=== PATIENT | male | born 1935 | race Caucasian/White ===

== ENCOUNTER → 2016-10-31 | Outpatient (CLI) | payer MEDICARE, BC ==
[~2016-10-31] MED LIST: AMARYL4 MG PO; ASPIRIN EC325 MG PO; COLACE100 MG PO; CORDARONE,PACE200 MG PO; CPAP INH; EFFEXOR XR75 MG PO; FLEXERIL10 MG PO; FLOMAX0.4 MG PO; GLUCOPHAGE500 MG PO; INVOKANA300 MG PO; LEVOTHROID (S150 MCG PO; NORVASC2.5 MG PO; OXYCODONE HCL5 MG PO; PROTONIX40 MG PO; TOPROL XL25 MG PO; TYLENOL325 MG PO; ULTRAM50 MG PO; ZOCOR40 MG PO
== END | disposition disaster alternative care site (69) ==
LOC: GRAD 08:28
DX: M54.9 Dorsalgia, unspecified (principal); M48.06 Spinal stenosis, lumbar region; M47.896 Other spondylosis, lumbar region; R20.0 Anesthesia of skin; R20.2 Paresthesia of skin; Z98.890 Other specified postprocedural states

== ENCOUNTER → 2016-12-02 | Outpatient (CLI) | payer MEDICARE, BC ==
--- NOTE | ~2016-12-02 | ENPV ---
Vascular Lower Arterial Plethysmography Procedure Demographics Patient Name AGUSTIN OSORIO Date of Study 12/02/2016 Patient Number [id number] Gender Male Date of 1935 Age 81 Visit Number [id number] Height Accession Number [id number] Weight Room Number BSA BMI Referring Chris Peter MD Interpreting Ld Smiley MD Physician Kenny Steve MD Physician Physician Ordering Physician Kenny Steve MD Party Plan Demonstrator Control Panel Operator Jose Enrique Trujillo, [facility] Conclusions Summary Bilateral ankle/brachial indices are abnormal and >1.4 suggestive of calcific non-compressible vessels. Bilateral complete segmental pressures may not be accurate secondary to non-compressible ankle/brachial indices. Bilateral Doppler waveforms are within normal limits of triphasic and biphasic. Right toe/brachial index is 1.10 and within normal limits. Left toe/brachial index is 1.22 and within normal limits. Procedure Type of Study: Extremities Arteries:Lower Arterial Plethysmography, Segmental Pressure, Complete. Indications for Study:Claudication. Additional Indications:pain in bilateral lower extremities Appropriate Use Criteria:7 Allergies - No known allergies. Patient Status:Routine. Study Location:[facility]. Technical Quality:Adequate visualization. Velocities are measured in cm/s ; Diameters are measured in cm Pressures + ++--------+-----+----+--------+-----+ ! !!Right ! !Left! ! ! + ++--------+-----+----+--------+-----+ !Location !!Pressure!Ratio! !Pressure!Ratio! + ++--------+-----+----+--------+-----+ !Upper Thigh !!205 !1.95 ! !192 !1.83 ! + ++--------+-----+----+--------+-----+ !Lower Thigh !!173 !1.65 ! !193 !1.84 ! + ++--------+-----+----+--------+-----+ !Ankle !!230 !2.19 ! !185 !1.76 ! + ++--------+-----+----+--------+-----+ !Ankle PT !!180 !1.71 ! !166 !1.58 ! + ++--------+-----+----+--------+-----+ !DP !!124 !1.18 ! !161 !1.53 ! + ++--------+-----+----+--------+-----+ !Great Toe !!116 !1.1 ! !128 !1.22 ! + ++--------+-----+----+--------+-----+ - Brachial Pressure:Right: 105.Left:105. - NIECY:Right: 1.71.Left: 1.58. Plethysmographic Digit Evaluation +---------++--------+-----+ ++--------+-----+ + ! !!Right ! !Left !! ! ! ! +---------++--------+-----+ ++--------+-----+ + !Location !!Pressure!Ratio!PPG Wave Form !!Pressure!Ratio!PPG Wave Form ! +---------++--------+-----+ ++--------+-----+ + !Great Toe!!116 !1.1 ! !!128 !1.22 ! ! +---------++--------+-----+ ++--------+-----+ + Signature dtt: RASTA BLEDSOE dtd: 12/02/16 1251 Physician Self Edit
== END | disposition disaster alternative care site (69) ==
LOC: GCAR 12:35
DX: M79.606 Pain in leg, unspecified (principal)

== ENCOUNTER 2017-01-22 11:00 | Inpatient (IN) | payer MEDICARE, BC ==
[~2017-01-22] VITALS: Ht 180.3 cm; Wt 107.2 kg
--- NOTE | ~2017-01-22 | OR ---
[facility]GE[facility] 81 Y [address] ROOM: [place] [address] LOCATION: [facility] ADMIT DATE: 01/29/2017 OR/Procedure Report DISCHARGE DATE: FAMILY PHYSICIAN: Rome Perez MD ATTENDING PHYSICIAN: PRISCA MARCIAL SURGEON: Prisca Marcial MD SENIOR DATA ARCHITECT: DATE OF PROCEDURE: 01/29/2017 ANESTHESIOLOGIST: Tyrone Rico M.D. ANESTHESIA: General. COMPLICATIONS: None. ESTIMATED BLOOD LOSS: 400 mL. PREOPERATIVE DIAGNOSES: 1. History of L3-L5 posterolateral instrumented fusion. 2. 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 3. L1-L2 severe spinal stenosis with neurogenic claudication. 4. L2-L3 severe spinal stenosis with neurogenic claudication. 5. L1-L2, L2-L3, L3-L4, L4-L5, and L5-S1 severe facet arthropathy with mechanical back pain. 6. History of L3-L5 decompressive laminectomy. POSTOPERATIVE DIAGNOSES: 1. History of L3-L5 posterolateral instrumented fusion. 2. 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 3. L1-L2 severe spinal stenosis with neurogenic claudication. 4. L2-L3 severe spinal stenosis with neurogenic claudication. 5. L1-L2, L2-L3, L3-L4, L4-L5, and L5-S1 severe facet arthropathy with mechanical back pain. 6. History of L3-L5 decompressive laminectomy. PROCEDURES: 1. Exploration of L3-L5 posterior instrumented fusion for loose hardware and pseudoarthrosis. 2. Removal of L3-L5 pedicle screws, rods, and cross connector for loose hardware, pseduoarthrosis, and mechanical low back pain. 3. L1-L2 decompressive laminectomy, partial bilateral inferior facetectomy and decompression of the neural elements for spinal stenosis. 4. L2-L3 decompressive laminectomy, partial bilateral inferior facetectomy and decompression of the neural elements for spinal stenosis. 5. L1-L2, L2-L3, L3-L4, L4-L5, and L5-S1 posterolateral noninstrumented PATIENT'S [facility]: [facility] AGE: 81 Y [address] ROOM: [place] [address] LOCATION: [facility] ADMIT DATE: 01/29/2017 OR/Procedure Report DISCHARGE DATE: FAMILY PHYSICIAN: Rome Perez MD ATTENDING PHYSICIAN: PRISCA MARCIAL. 6. Insertion of mixture of allograft, autograft, and DBM bone posterolaterally from L1-S1 for posterolateral arthrodesis. 7. Decortication of the L1-L2, L2-L3, L3-L4, L4-L5, and L5-S1 facet joints for posterolateral arthrodesis. CLINICAL HISTORY: The patient is an 81-year-old male patient who was diagnosed clinically and on imaging to have the above-mentioned diagnoses. The patient was symptomatic with severe low back pain and severe neurogenic claudication symptoms. I recommended the above mentioned surgery to the patient to try to relieve his symptoms and improve his daily activities and functioning. The patient was interested in proceeding, so he was brought in for the operation. DESCRIPTION OF PROCEDURE: The patient was seen in the preoperative care unit and the correct side was marked. Then, he was transferred to the main operating theater, was given general anesthetic, and underwent endotracheal intubation without complications. Preoperative antibiotics were given. Ac catheter, calf compressors, and an arterial line were used throughout the procedure. The patient was carefully turned to prone position on a gel padded Chuck table and all his joints and bony prominences were securely padded. The lumbar region was exposed. The previous midline lumbar scar was exposed as well. The surgical site was prepped and draped as per usual. The proposed skin incision was infiltrated with 0.25% Marcaine with epinephrine. Skin was sharply opened down to the subcutaneous tissue. Then, using a monopolar cautery, I dissected through the lumbar fascia and through the scar from the previous tissue. I managed to expose the spinous processes of L1 and L2 as well as the spinous process of S1. I also managed to expose the L1-L2 laminae as well as L1-L2 and L2-L3 facet joints. Then, I dissected through the scar tissue, which was substantially difficult. I managed to expose the posterior instrumentation from L3-L5 as well as the cross connector. There was significant bony growth around the hardware and that was exposed. I was happy with the exposure. I started by formally exposing the L3-L5 instrumentation. The bony overgrowth around the hardware was removed using an osteotome, Leksell, and high-speed Midas Jaguar drill. Then, I started by removing the screw caps and I did that without any complications. Then, I removed the cross sandrine connector without any complications. Rods were removed. Then, the L3 and L4 screws were removed. As expected, based on the previous preoperative imaging, the L5 pedicle screws were loose bilaterally and those were removed without any complications. Then, I proceeded to perform the laminectomy at L1-L2 and L2-L3 levels. Using PATIENT'S NAME: AGUSTIN OSORIO [facility] AGE: 81 Y [address] ROOM: [id number] [place], [place] [address] LOCATION: [facility] ADMIT DATE: 01/29/2017 OR/Procedure Report DISCHARGE DATE: FAMILY PHYSICIAN: Rome Perez MD ATTENDING PHYSICIAN: PRISCA MARCIAL, the spinous processes of L1 and L2 were removed. Then, using a high- speed Midas Jaguar drill, the L1 and L2 laminae were thinned down to the ligamentum flavum. The bone was hyperostatic and the ligamentum flavum was calcified. Then, I finished the laminectomy and the partial inferior facetectomy at L1-L2 and L2-L3 levels using Kerrison rongeur without any complications. The thecal sac was then decompressed by removing the ligamentum flavum at L1-L2. Again, there were adhesions between the ligamentum flavum and the dura given the calcification of the ligamentum flavum. I had no complications. Thecal sac was decompressed at L1-L2. Then, I continued the decompressive laminectomy at L2-L3. As expected, there was severe stenosis at that level. There was also severe adhesions and scarring between the ligamentum flavum and the dura. Using blunt and sharp dissection, I managed to dissect the scar tissue and removed the ligamentum flavum to achieve complete decompression of the thecal sac. I was satisfied with the decompression. That part of the operation was extremely difficult given the calcification of the ligamentum flavum as well as the scar tissue between the dura and the ligamentum flavum. We had no complications during that. I was satisfied with that. Then, I proceeded to irrigate the wound. The wound was copiously irrigated with bacitracin-containing irrigation. Then, I proceeded to decorticate the facet joints at L1-L2, L2-L3, L3-L4, L4-L5, and L5-S1 levels. I did that using Leksell rongeur and high-speed Midas Jaguar drill to achieve posterolateral arthrodesis. Then, the dura was covered with Gelfoam. Then, a mixture of autograft, allograft, and DBM bone was placed posterolaterally from L1-S1 for posterolateral arthrodesis. Then, I proceeded to closure. Two 1/ Hemovac drains were inserted, tunneled, and secured to the skin with 3-0 Prolene. Then, the wound was closed in layers with #1 Vicryl to the paraspinal muscles, #1 Vicryl to the fascia, 2-0 Vicryl to the subcutaneous tissue, and leola for the skin. Sterile dressing was applied. At the end of the operation, the instrument and sponge counts were correct. The patient tolerated the operation without any complications. This operation was substantially difficult given the significant scarring from the previous surgery, significant bony overgrowth around the hardware, and severe scarring and adhesions at L1-L2 and L2-L3 levels. This operation required more time and caution to perform in order to avoid intraoperative morbidity. PRISCA MARCIAL MD PATIENT'S NAME: AGUSTIN OSORIO [facility] AGE: 81 Y [address] ROOM: [place] [address] LOCATION: [facility] ADMIT DATE: 01/29/2017 OR/Procedure Report DISCHARGE DATE: FAMILY PHYSICIAN: Rome Perez MD ATTENDING PHYSICIAN: PRISCA MARCIAL AB/modl /[id number] CC: MD Power Benitez MD d: 01/29/17 2352 t: 01/31/17 1132, OPERATIVE SUMMARY
--- NOTE | ~2017-01-22 | DS ---
PATIENT'S NAME: AGUSTIN OSORIO [facility] AGE: 81 Y [address] ROOM: [address] [place], [place] [address] LOCATION: [facility] ADMIT DATE: 01/29/2017 Discharge Summary DISCHARGE DATE: 02/03/2017 FAMILY PHYSICIAN: Rome Perez MD ATTENDING PHYSICIAN: Prisca Marcial ADMISSION MAIN DIAGNOSES: 1. L1-L2, L2-L3 spinal stenoses with neurogenic claudication. 2. History of L3-L5 posterior instrumented fusion, hardware failure and pseudoarthrosis, back pain. 3. L1-S1 bilateral facet arthropathy with mechanical low back pain. DISCHARGE DIAGNOSES: 1. L1-L2, L2-L3 spinal stenoses with neurogenic claudication. 2. History of L3-L5 posterior instrumented fusion, hardware failure and pseudoarthrosis, back pain. 3. L1-S1 bilateral facet arthropathy with mechanical low back pain. PROCEDURES DURING ADMISSION: 1. L1-L2, L2-L3 decompressive laminectomy for spinal stenosis. 2. Exposure and removal of loose L3-L5 posterior instrumentation. 3. L1-S1 posterolateral non-instrumented fusion. SURGICAL COMPLICATIONS DURING ADMISSION: None. DISCHARGE INSTRUCTIONS AND FOLLOWUP APPOINTMENTS: 1. Myself on February 10, 2017, for staple removal. 2. Corset brace when mobilizing. 3. Call my office for any concerns regarding the wound healing or for any new neurologic symptoms. 4. No heavy lifting (no more than 20 pounds), no back twisting, no forward bending. 5. Keep the dressing on and dry until February 08, then take off and keep the wound open to air. 6. Contact Dr. Cox's office for any issues regard to heart rhythm/ shortness of breath. MEDICATIONS ON DISCHARGE: 1. Amiodarone 200 mg p.o. once daily. 2. Resume all pre-admission medications. 3. Aspirin 325 mg p.o. once daily (start on February 05, 2017). 4. Flexeril 10 mg p.o. every 8 hours p.r.n. 5. Tramadol 50 to 100 mg p.o. every 6 hours p.r.n. HOSPITAL COURSE: The patient is an 81-year-old male patient, who was diagnosed clinically and on imaging to have the above-mentioned diagnoses. PATIENT'S NAME: AGUSTIN OSORIO [facility] AGE: 81 Y [address] ROOM: [id number] [place], [place] [address] LOCATION: [facility] ADMIT DATE: 01/29/2017 Discharge Summary DISCHARGE DATE: 02/03/2017 FAMILY PHYSICIAN: Rome Perez MD ATTENDING PHYSICIAN: Prisca Marcial Conservative treatment failed and the patient was fairly symptomatic. The patient was brought in electively for the above-mentioned surgery. He underwent an unremarkable operation. Postoperatively, the patient did very well from the surgical perspective. All his preoperative severe mechanical low back pain and neurogenic claudication symptoms have completely resolved. He mobilized very well with physiotherapy and occupational therapy. On postoperative day #1, the patient was noticed to have increasing respiratory rate, shortness of breath, and his EKG showed evidence of tachycardia. EKG confirmed ventricular tachycardia. The patient was transferred to the progressive care unit, and he was urgently seen by Cardiology. He was started on amiodarone, which fairly controlled heart rate, and the patient converted to sinus rhythm. The patient continued to have shortness of breath. His chest x-ray showed evidence of pulmonary edema. The patient was given Lasix and had a good diuresis. The patient was continued on amiodarone, and he continued to be seen by hospitalist and Cardiology. His followup chest x-ray showed gradual improvement of pulmonary edema. Eventually, the patient was off the oxygen. He stabilized from the respiratory status. From the spine perspective, the patient remained stable throughout the admission. His incision was healing very well and there was no evidence of infection or dehiscence. All his preoperative symptoms completely resolved after the surgery. He also had a postoperative lumbar spine x-ray and that showed no change in the lumbar spine alignment. On the day of discharge, the patient was examined. He remained stable from the cardiovascular and respiratory perspective. He had no new motor deficits on his lower extremities. He was mobilizing with minimal surgical pain with PT and OT. His wound was examined and it was healing very well. I reviewed the discharge instructions with the patient. The patient was also seen by Cardiology and he was cleared for discharge. Given that, the patient will be sent home today. AHMAD MD IZABELLA MARCIAL/modl /[id number] CC: MD Rome Desai MD d: 02/05/17 0746 t: 02/05/17 1423, DISCHARGE SUMMARY
--- NOTE | ~2017-01-22 | OR ---
[facility] 81 Y [address] ROOM: [place] [address] LOCATION: [facility] ADMIT DATE: 01/29/2017 OR/Procedure Report DISCHARGE DATE: FAMILY PHYSICIAN: Rome Perez MD ATTENDING PHYSICIAN: SUNI BELL SURGEON: Tyrone Rico MD DATA WAREHOUSE SPECIALIST: None. DATE OF PROCEDURE: 01/29/2017 PROCEDURE PERFORMED: Right radial 20-gauge arterial line placement. INDICATIONS FOR PROCEDURE: Need for perioperative edsb-ln-dxup blood pressure monitoring. PREOPERATIVE DIAGNOSES: 1. Lumbar stenosis with unstable lumbar hardware. 2. Moderate aortic stenosis status post transcatheter aortic-valve replacement. 3. Ischemic cardiomyopathy status post coronary artery bypass grafting. 4. History of atrial fibrillation. 5. Hypertension. 6. Hyperlipidemia. 7. Obstructive sleep apnea, on CPAP therapy. 8. Obesity. 9. Diabetes mellitus, type 2. POSTOPERATIVE DIAGNOSES: 1. Lumbar stenosis with unstable lumbar hardware. 2. Moderate aortic stenosis status post transcatheter aortic-valve replacement. 3. Ischemic cardiomyopathy status post coronary artery bypass grafting. 4. History of atrial fibrillation. 5. Hypertension. 6. Hyperlipidemia. 7. Obstructive sleep apnea, on CPAP therapy. 8. Obesity. 9. Diabetes mellitus, type 2. COMPLICATIONS: None noted. ESTIMATED BLOOD LOSS: Minimal. CONSENT: Informed consent was obtained preoperatively including discussion of risks, benefits, and alternatives. Mr. Riddle stated his understanding of the above procedures, risks, benefits, and alternatives and agreed for me to PAT[facility] AGE: 81 Y [address] ROOM: [place] [address] LOCATION: [facility] ADMIT DATE: 01/29/2017 OR/Procedure Report DISCHARGE DATE: FAMILY PHYSICIAN: Rome Perez MD ATTENDING PHYSICIAN: SUNI BELL proceed. DESCRIPTION OF PROCEDURE: After induction of anesthesia, the patient in prone position. Right wrist was supinated. Sterile prep with ChloraPrep x2. Utilizing sterile technique, a 20-gauge Arrow catheter was cannulated under direct ultrasound guidance. Pulsatile blood flow. Over a wire 20-gauge Arrow catheter was inserted without difficulty. Wire and needle were removed intact. Catheter was de-aired and flushed with saline solution. Sterile occlusive Tegaderm dressing was applied. Good correlation of non-invasive blood pressure monitoring. The patient tolerated the procedure well. MD TIERNEY BORDEN/blancal /[id number] d: 01/29/174 t: 01/30/17 1550, OPERATIVE SUMMARY
[~2017-01-22 11:00] MED LIST changes: -COLACE100 MG PO; -CORDARONE,PACE200 MG PO; -EFFEXOR XR75 MG PO; -FLEXERIL10 MG PO; -FLOMAX0.4 MG PO; -OXYCODONE HCL5 MG PO; -PROTONIX40 MG PO; -TYLENOL325 MG PO; -ULTRAM50 MG PO
[2017-01-22] MEDS ORDERED: EFFEXOR XR75 MG PO (15:42)
[2017-01-22] MEDS ORDERED: FLOMAX0.4 MG PO (15:42)
[2017-01-22] MEDS ORDERED: PROTONIX40 MG PO (15:43)
[2017-01-30 05:58] LABS: HEMATOCRIT 34.7 % (33.0-50.0); HEMOGLOBIN 11.5 g/dL (11.0-16.0); MCH 32.3 pg (27.0-34.0); MCHC 33.1 gm/dL (32.0-36.5); MCV 97.5 fl (83.0-98.0); MPV 9.6 fl (9.4-12.4); RBC 3.56 M/uL (3.50-5.50); RDW-CV 14.2 % (11.9-14.6); WBC 10.9 K/uL (4.0-11.0)
[2017-01-30 06:15] LABS: ANION GAP 11.4 (10.0-19.0); CALCIUM 7.5 mg/dL (8.5-10.5); POTASSIUM 4.4 mMol/L (3.7-5.1)
[2017-01-31 05:20] LABS: ANION GAP 10.9 (10.0-19.0); POTASSIUM 3.9 mMol/L (3.7-5.1)
[2017-01-31 11:14] LABS: TOTAL PROTEIN 6.8 g/dL (6.0-8.4)
[2017-02-01 10:29] LABS: ALBUMIN 2.8 gm/dL (3.5-5.0); ANION GAP 10.6 (10.0-19.0); MAGNESIUM 2.2 mg/dL (1.8-2.6); POTASSIUM 3.6 mMol/L (3.7-5.1)
[2017-02-01 10:34] LABS: PHOSPHORUS 1.3 mg/dL (2.5-4.9)
[2017-02-01 12:04] LABS: BASOPHIL % 0.3 %; EOSINOPHIL # 0.1 K/uL (0.0-0.5); EOSINOPHIL % 0.6 %; HEMATOCRIT 34.3 % (33.0-50.0); HEMOGLOBIN 11.8 g/dL (11.0-16.0); IMMATURE GRANULOCYTE % 0.4 %; LYMPHOCYTE # 1.3 K/uL (0.8-4.0); MCHC 34.4 gm/dL (32.0-36.5); MCV 95.8 fl (83.0-98.0); MONOCYTE # 0.8 K/uL (0.0-1.0); MONOCYTE % 7.3 %; MPV 9.6 fl (9.4-12.4); NEUTROPHIL # (ANC) 8.6 K/uL (1.4-9.0); NEUTROPHIL % 79.4 %; NRBC % 0 /100WBC (0-0.00); PLATELET COUNT 171 K/uL (150-450); RBC 3.58 M/uL (3.50-5.50); RDW-CV 13.8 % (11.9-14.6); WBC 10.8 K/uL (4.0-11.0)
[2017-02-02 06:49] LABS: ALBUMIN 2.6 gm/dL (3.5-5.0); ANION GAP 11.5 (10.0-19.0); CALCIUM 8.2 mg/dL (8.5-10.5); MAGNESIUM 2.2 mg/dL (1.8-2.6); POTASSIUM 3.5 mMol/L (3.7-5.1)
[2017-02-02 06:54] LABS: PHOSPHORUS 1.8 mg/dL (2.5-4.9)
[2017-02-03 06:29] LABS: ALBUMIN 2.6 gm/dL (3.5-5.0); ANION GAP 10.9 (10.0-19.0); CALCIUM 8.1 mg/dL (8.5-10.5); MAGNESIUM 2.3 mg/dL (1.8-2.6); PHOSPHORUS 2.2 mg/dL (2.5-4.9); POTASSIUM 3.9 mMol/L (3.7-5.1)
[2017-02-03] MEDS ORDERED: TYLENOL325 MG PO (12:33)
[2017-02-03] MEDS ORDERED: CORDARONE,PACE200 MG PO (12:35)
[2017-02-03] MEDS ORDERED: COLACE100 MG PO (12:36)
[2017-02-03] MEDS ORDERED: FLEXERIL10 MG PO (12:37)
[2017-02-03] MEDS ORDERED: ULTRAM50 MG PO (12:39)
[2017-02-03] MEDS ORDERED: OXYCODONE HCL5 MG PO (12:40)
== END 2017-02-03 13:10 | disposition disaster alternative care site (69) | DRG 459 ==
LOC: G3N 01-29 05:52 → GPCU 01-30 17:16 → G3N 01-30 17:16 → GPCU 01-30 20:05
PROVIDERS: Internal Medicine; Internal Medicine Interventional Cardiology; ADMIT Neurological Surgery
PROC: 00NY0ZZ Release Lumbar Spinal Cord, Open Approach (ICD-10-PCS; principal; 2017-01-29)
PROC: 0SP00AZ Removal of Interbody Fusion Device from Lumbar Vertebral Joint, Open Approach (ICD-10-PCS; principal; 2017-01-29)
PROC: 0SG30K1 Fusion of Lumbosacral Joint with Nonautologous Tissue Substitute, Posterior Approach, Posterior Column, Open Approach (ICD-10-PCS; principal; 2017-01-29)
PROC: 03HY32Z Insertion of Monitoring Device into Upper Artery, Percutaneous Approach (ICD-10-PCS; principal; 2017-01-29)
PROC: 0SG10K1 Fusion of 2 or more Lumbar Vertebral Joints with Nonautologous Tissue Substitute, Posterior Approach, Posterior Column, Open Approach (ICD-10-PCS; principal; 2017-01-29)
DX: M48.06 Spinal stenosis, lumbar region (principal); J96.01 Acute respiratory failure with hypoxia; S32.009K Unspecified fracture of unspecified lumbar vertebra, subsequent encounter for fracture with nonunion; T84.216A Breakdown (mechanical) of internal fixation device of vertebrae, initial encounter; E03.9 Hypothyroidism, unspecified; E11.9 Type 2 diabetes mellitus without complications; E78.5 Hyperlipidemia, unspecified; G47.33 Obstructive sleep apnea (adult) (pediatric); I25.10 Atherosclerotic heart disease of native coronary artery without angina pectoris; I35.0 Nonrheumatic aortic (valve) stenosis; Z95.2 Presence of prosthetic heart valve; I10 Essential (primary) hypertension; E66.01 Morbid (severe) obesity due to excess calories; Z68.33 Body mass index [BMI] 33.0-33.9, adult
CPT/HCPCS: C1713; J0282; J0690; J1100; J1170; J1644; J1940; J2001; J2250; J2405; J3473; J7030; J7040; J7050; J7060